=== PATIENT | female | born 1940 | race Caucasian/White ===

== ENCOUNTER 2017-08-08 11:53 | Emergency (ER) | payer MEDICARE, BC ==
--- NOTE | 2017-08-08 13:11 | EDM.PDOC ---
ED HPI GENERAL MEDICAL PROBLEM - General Chief Complaint: Upper Extremity Injury/Pain Stated Complaint: L WRIST PAIN Time Seen by Provider: 08/08/17 12:24 Source of Information: Reports: Patient History Limitations: Reports: No Limitations - History of Present Illness INITIAL COMMENTS - FREE TEXT/NARRATIVE: Left wrist pain oabout 1 1/2 weeks. Suddenly woke then with pain both wrists. The right side got better but the left side persists. Seen in clinic told to take Aleve. No hx gout. Bilateral Wrist Pain Score (Numeric/FACES): 9 - Related Data Allergies Allergy/AdvReac Type Severity Reaction Status Date / Time No Known Allergies Allergy Verified 07/03/14 07:49 Home Meds: Home Meds Aspirin [[place] Aspirin] 81 mg PO DAILY 08/08/17 [History] Liraglutide [Victoza] 1.8 mg INJECT DAILY 08/08/17 [History] Lisinopril 1 tab PO DAILY 08/08/17 [History] Omega3/Dha/Epa/Fish Oil/Vit D3 [[place]-3 + Vitamin D3 Softgel] 1 each PO DAILY [History] Sulfamethoxazole/Trimethoprim [Bactrim Ds Tablet] 1 each PO BID 08/08/17 [ History] Past Medical History HEENT History: Reports: Impaired Vision Cardiovascular History: Reports: Hypertension Genitourinary History: Reports: Urinary Incontinence 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: Musculoskeletal History: Reports: Osteoarthritis, Other (See Below) Other Musculoskeletal History: osteopenia posterior tibial tendon dysfunction callus r foot Psychiatric History: Reports: Anxiety Endocrine/Metabolic History: Reports: Diabetes, Type II, Obesity/BMI 30+ Dermatologic History: Reports: Psoriasis - Infectious Disease History Infectious Disease History: Reports: Chicken Pox, Measles, Mumps, Shingles - Past Surgical History Female Surgical History: Reports: Hysterectomy Musculoskeletal Surgical History: Reports: Knee Replacement Social & Family History - Tobacco Use Smoking Status *Q: Never Smoker Second Hand Smoke Exposure: No - Caffeine Use Caffeine Use: Reports: Coffee, Tea - Alcohol Use Days Per Week of Alcohol Use: 0 - Recreational Drug Use Recreational Drug Use: No Review of Systems - Review of Systems Review Of Systems: ROS reveals no pertinent complaints other than HPI. ED EXAM, GENERAL - Physical Exam Exam: See Below Exam Limited By: No Limitations General Appearance: Alert, WD/WN, No Apparent Distress Extremities: Other (minimal erythema left wrist with mod decreased ROM. Mod tender . NVT intact. Rt wrist noral) Course - Vital Signs Last Recorded V/S: Last Vital Signs Temp 37 C 08/08/17 12:09 Pulse 97 08/08/17 12:33 Resp 16 08/08/17 12:33 BP 127/72 08/08/17 12:33 Pulse Ox 97 08/08/17 12:33 - Re-Assessments/Exams Free Text/Narrative Re-Assessment/Exam: 08/08/17 13:08 rechecking bp Departure - Departure Time of Disposition: 13:09 Disposition: Home, Self-Care 01 Condition: Fair Clinical Impression: Monoarticular arthritis - Discharge Information Referrals: Clemencia Chan MD [Primary Care Provider] - Additional Instructions: Most likely this is a mild case of gout and is just about over with. No chance of infection. Continue to use the Aleve as your doctor recommended. You may take tylenol at the same time. Take Prednisone 20 mg daily for 5 days.
== END 2017-08-08 13:42 | disposition home or self-care (01) ==
LOC: JP.ED 11:53
DX: M13.132 Monoarthritis, not elsewhere classified, left wrist (principal); I10 Essential (primary) hypertension; E11.9 Type 2 diabetes mellitus without complications; Z79.82 Long term (current) use of aspirin; Z79.899 Other long term (current) drug therapy
CPT/HCPCS: 99283

== ENCOUNTER 2020-11-27 16:28 | Emergency (ER) | payer MEDICARE ==
--- NOTE | 2020-11-27 17:40 | EDM.PDOC ---
ED HPI GENERAL MEDICAL PROBLEM - General Chief Complaint: Back Pain or Injury Stated Complaint: BACK ACHE, URINARY INCONTINENCE Time Seen by Provider: 11/27/20 17:35 Source of Information: Reports: Patient History Limitations: Reports: No Limitations - History of Present Illness INITIAL COMMENTS - FREE TEXT/NARRATIVE: 80-year-old female with chronic low back pain, is concerned because over the past 2 days she has had increased urinary frequency and intermittent incontinence which is unusual for her. She is concerned she may have a urinary tract infection, she has no fevers or chills or significant dysuria. She does have increased urgency. No nausea or vomiting, significant abdominal pain, fevers or shortness of breath. Onset: Unknown/Unsure Location: Reports: Other (Pain is chronic and is in her lower back) Associated Symptoms: Denies: Fever/Chills, Loss of Appetite, Malaise, Shortness of Breath Back Pain Score (Numeric/FACES): 10 - Related Data Allergies Allergy/AdvReac Type Severity Reaction Status Date / Time No Known Allergies Allergy Verified 11/27/20 17:22 Home Meds: Home Meds Aspirin [Rosalia Aspirin] 81 mg PO DAILY 08/08/17 [History] Lisinopril 20 mg PO DAILY 08/08/17 [History] Calcium Carbonate [Calcium] 500 mg PO DAILY 11/27/20 [History] Folic Acid 1 mg PO DAILY 11/27/20 [History] Gabapentin [Neurontin] 600 mg PO TID 11/27/20 [History] Leflunomide [Arava] 10 mg PO DAILY 11/27/20 [History] glipiZIDE [Glucotrol] 5 mg PO DAILY 11/27/20 [History] tiZANidine [Zanaflex] 2 mg PO Q8H PRN 11/27/20 [History] Past Medical History HEENT History: Reports: Cataract, Impaired Vision Cardiovascular History: Reports: Hypertension Genitourinary History: Reports: Urinary Incontinence 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: Musculoskeletal History: Reports: Back Pain, Chronic, Osteoarthritis, Other (See Below) Other Musculoskeletal History: osteopenia posterior tibial tendon dysfunction callus r foot Psychiatric History: Reports: Anxiety Endocrine/Metabolic History: Reports: Diabetes, Type II, Obesity/BMI 30+ Dermatologic History: Reports: Psoriasis - Infectious Disease History Infectious Disease History: Reports: Chicken Pox, Measles, Mumps, Shingles - Past Surgical History HEENT Surgical History: Reports: Cataract Surgery Female Surgical History: Reports: Hysterectomy Musculoskeletal Surgical History: Reports: Knee Replacement Social & Family History - Tobacco Use Tobacco Use Status *Q: Never Tobacco User - Caffeine Use Caffeine Use: Reports: Coffee - Recreational Drug Use Recreational Drug Use: No ED ROS GENERAL - Review of Systems Review Of Systems: See Below Constitutional: Reports: Chills (Mild chills earlier today, normal now), Malaise. Denies: Fever Respiratory: Denies: Shortness of Breath Cardiovascular: Denies: Chest Pain GI/Abdominal: Reports: Abdominal Pain (Intermittent lower abdominal discomfort, none currently) : Reports: Frequency, Incontinence, Urgency. Denies: Dysuria, Flank Pain Musculoskeletal: Reports: Back Pain ED EXAM, GENERAL - Physical Exam Exam: See Below Exam Limited By: No Limitations General Appearance: Alert, No Apparent Distress Head: Atraumatic Respiratory/Chest: No Respiratory Distress, Lungs Clear Cardiovascular: Regular Rate, Rhythm GI/Abdominal: Normal Bowel Sounds, Soft, Tender (Does react with some mild tenderness in the left lower quadrant compared to the right, no guarding) Extremities: Other (A trace of symmetric bilateral ankle edema is present) Neurological: Alert, Oriented Psychiatric: Normal Affect, Normal Mood Skin Exam: Warm, Dry Course - Vital Signs Last Recorded V/S: Last Vital Signs Temp 95.2 F L 11/27/20 17:20 Pulse 94 11/27/20 17:20 Resp 16 11/27/20 17:20 BP 206/80 H 11/27/20 17:20 Pulse Ox 96 11/27/20 17:20 - Orders/Labs/Meds Labs: Laboratory Tests 11/27/20 Range/Units 17:20 Urine Color Yellow (YELLOW) Urine Appearance Clear (CLEAR) Urine pH 6.0 (5.0-8.0) Ur Specific [place] 1.010 (1.008-1.030) Urine Protein Negative (NEGATIVE) mg/dL Urine Glucose (UA) Negative (NEGATIVE) mg/dL Urine Ketones Negative (NEGATIVE) mg/dL Urine Occult Blood Negative (NEGATIVE) Urine Nitrite Negative (NEGATIVE) Urine Bilirubin Negative (NEGATIVE) Urine Urobilinogen 0.2 (0.2-1.0) EU/dL Ur Leukocyte Esterase Negative (NEGATIVE) Urine RBC 0-5 (0-5) Urine WBC 0-5 (0-5) Ur Epithelial Cells Moderate Amorphous Sediment Few Urine Bacteria Few Urine Mucus Not seen - Re-Assessments/Exams Free Text/Narrative Re-Assessment/Exam: 11/27/20 17:40 A UA was obtained by clean-catch. 11/27/20 18:04 UA is completely normal. A glucometer just before coming into the emergency room showed a glucose of 124, there is no glucose or protein in her urine. This may be related to medication side effects for her back or possibly just nerve damage from chronic back pain. She will return in the next 3 days if she develops a fever or increased abdominal pain, otherwise follow-up with Shari Alexis early in the week. Her main concern was that she had a urinary tract infection which is negative. Departure - Departure Time of Disposition: 18:28 Disposition: Home, Self-Care 01 Clinical Impression: Urinary incontinence Qualifiers: Urinary Incontinence type: urge incontinence Qualified Code(s): N39.41 - Urge incontinence Chronic back pain Qualifiers: Back pain location: low back pain Back pain laterality: bilateral Sciatica presence: without sciatica Qualified Code(s): M54.50 - Low back pain, unspecified - Discharge Information Instructions: Chronic Back Pain, [id number] Referrals: Shari Forbes MD [Primary Care Provider] - Forms: ED Department Discharge Care Plan Goals: Continue your current medications, return for reexamination if you develop fever or increased abdominal pain. Otherwise recheck with your primary provider next week about any other options or further evaluations or consultations that may be helpful. Sepsis Event Note (ED) - Evaluation Sepsis Screening Result: No Definite Risk
== END 2020-11-27 18:28 | disposition home or self-care (01) ==
LOC: JP.ED 16:28
DX: N39.41 Urge incontinence (principal); E11.9 Type 2 diabetes mellitus without complications; E66.9 Obesity, unspecified; Z68.36 Body mass index [BMI] 36.0-36.9, adult; Z79.82 Long term (current) use of aspirin; Z79.899 Other long term (current) drug therapy
CPT/HCPCS: 81001; 99283

== ENCOUNTER 2021-05-16 19:48 | Inpatient (IN) | payer MEDICARE ==
[2021-05-16] MEDS ORDERED: cefTRIAXone 1 GM in Sodium Chloride 0.9% 50 ML IV ONE (20:51)
[2021-05-16] MEDS ORDERED: Sodium Chloride 0.9% 1,000 ML IV SCH ×2 (21:15→23:15)
[2021-05-16 21:50] LABS: CORONAVIRUS COVID-19 NAA NEGATIVE (NEGATIVE)
[2021-05-16] MEDS ORDERED: Glucagon,Human Recombinant 1 MG Vial IM PRN (22:09)
[2021-05-16] MEDS ORDERED: 50% Dextrose in Water 50 ML Syringe IVPUSH PRN (22:09)
[2021-05-16] MEDS ORDERED: Insulin Regular, Human 100 Units/ML 3 ML Vial SUBCUT ONE (22:09)
[2021-05-16] MEDS: Acetaminophen/HYDROcodone 325-5 MG Tab PO PRN (23:19)
[2021-05-17] MEDS: Lisinopril 20 MG Tab PO SCH (08:26)
[2021-05-17] MEDS: Acetaminophen/HYDROcodone 325-5 MG Tab PO PRN (08:26)
[2021-05-17] MEDS ORDERED: Gabapentin 300 MG Cap PO SCH (09:00)
[2021-05-17] MEDS ORDERED: 50% Dextrose in Water 50 ML Syringe IV PRN (09:15)
[2021-05-17] MEDS ORDERED: Glucose Gel 15 GM in 37.5 GM Tube PO PRN (09:15)
[2021-05-17] MEDS: Gabapentin 300 MG Cap PO SCH ×3 (10:17→21:48)
[2021-05-17] MEDS: metFORMIN 500 MG Tab PO SCH ×2 (10:18→16:54)
[2021-05-17] MEDS: Aspirin 81 MG Tab.EC PO SCH (10:18)
[2021-05-17] MEDS: Enoxaparin 40 MG/0.4 ML Syringe SUBCUT SCH (10:19)
[2021-05-17] MEDS: Insulin Lispro 100 Unit/ML 3 ML KwikPen SUBCUT SCH ×3 (11:44→21:49)
[2021-05-17] MEDS: cefTRIAXone 1 GM in Sodium Chloride 0.9% 50 ML IV SCH (21:47)
[2021-05-18] MEDS: Insulin Lispro 100 Unit/ML 3 ML KwikPen SUBCUT SCH ×4 (09:21→21:43)
[2021-05-18] MEDS: metFORMIN 500 MG Tab PO SCH ×2 (09:24→17:28)
[2021-05-18] MEDS: Aspirin 81 MG Tab.EC PO SCH (09:25)
[2021-05-18] MEDS: Gabapentin 300 MG Cap PO SCH ×3 (09:25→21:44)
[2021-05-18] MEDS: Enoxaparin 40 MG/0.4 ML Syringe SUBCUT SCH (09:25)
[2021-05-18] MEDS: Lisinopril 20 MG Tab PO SCH (09:26)
[2021-05-18] MEDS ORDERED: Polyethylene Glycol 3350 Powder 17 GM Packet PO ONE (11:00)
[2021-05-18] MEDS: cefTRIAXone 1 GM in Sodium Chloride 0.9% 50 ML IV SCH (20:51)
[2021-05-19] MEDS: Insulin Lispro 100 Unit/ML 3 ML KwikPen SUBCUT SCH (07:33)
[2021-05-19] MEDS: metFORMIN 500 MG Tab PO SCH (07:33)
[2021-05-19] MEDS: Enoxaparin 40 MG/0.4 ML Syringe SUBCUT SCH (09:04)
[2021-05-19] MEDS: Aspirin 81 MG Tab.EC PO SCH (09:04)
[2021-05-19] MEDS: Gabapentin 300 MG Cap PO SCH (09:04)
[2021-05-19] MEDS: Lisinopril 20 MG Tab PO SCH (09:04)
== END 2021-05-19 11:45 | disposition home or self-care (01) | DRG 690 ==
LOC: JP.ED 19:48 → JP.MS 21:40
PROVIDERS: ADMIT Family Medicine; ATTEND Hospitalist
DX: N30.00 Acute cystitis without hematuria (principal); N17.9 Acute kidney failure, unspecified; E86.0 Dehydration; N39.0 Urinary tract infection, site not specified; N18.31 Chronic kidney disease, stage 3a; M54.50 Low back pain, unspecified; H54.7 Unspecified visual loss; B96.20 Unspecified Escherichia coli [E. coli] as the cause of diseases classified elsewhere; E11.22 Type 2 diabetes mellitus with diabetic chronic kidney disease; I12.9 Hypertensive chronic kidney disease with stage 1 through stage 4 chronic kidney disease, or unspecified chronic kidney disease; I10 Essential (primary) hypertension; R32 Unspecified urinary incontinence; G89.29 Other chronic pain; M54.9 Dorsalgia, unspecified; E66.9 Obesity, unspecified; Z96.659 Presence of unspecified artificial knee joint; M19.90 Unspecified osteoarthritis, unspecified site; M85.80 Other specified disorders of bone density and structure, unspecified site; F41.9 Anxiety disorder, unspecified; Z90.710 Acquired absence of both cervix and uterus; Z68.32 Body mass index [BMI] 32.0-32.9, adult; E11.9 Type 2 diabetes mellitus without complications; Z79.84 Long term (current) use of oral hypoglycemic drugs; Z79.82 Long term (current) use of aspirin; Z79.899 Other long term (current) drug therapy; Z20.822 Contact with and (suspected) exposure to COVID-19
CPT/HCPCS: 0241U; 36415; 71045; 80048; 80053; 81001; 82947; 83605; 85025; 85027; 87086; 87088; 87186; 96365; 97162; 97530; 99284; 99285; A9270-GY; J0696; J1650; J1815; J1815-GY; J3490; J7030

== ENCOUNTER 2023-02-23 07:13 | Day surgery (SDC) | payer MEDICARE ==
[~2023-02-23 07:13] MED LIST: Propofol 200 MG/20 ML SDV ONE; fentaNYL 50 MCG/ML SDV ONE
[2023-02-23] MEDS ORDERED: Lactated Ringers 1,000 ML IV SCH (08:30)
[2023-02-23] MEDS ORDERED: Propofol 200 MG/20 ML SDV ONE (09:34)
== END 2023-02-23 11:15 | disposition home or self-care (01) ==
LOC: JP.SDS 07:13
PROVIDERS: ATTEND Student in an Organized Health Care Education/Training Program
DX: R19.5 Other fecal abnormalities (principal); K63.5 Polyp of colon; K57.30 Diverticulosis of large intestine without perforation or abscess without bleeding; K21.9 Gastro-esophageal reflux disease without esophagitis; E78.5 Hyperlipidemia, unspecified
CPT/HCPCS: 88305; J2704; J3010; J7120

== ENCOUNTER 2023-10-19 11:36 | Emergency (ER) | payer MEDICARE ==
[2023-10-19 12:59] LABS: APPEARANCE,URINE SLIGHTLY CLOUDY (CLEAR); BILIRUBIN,URINE NEGATIVE (NEGATIVE); COLOR,URINE YELLOW (YELLOW); GLUCOSE,URINE NEGATIVE (NEGATIVE); KETONES,URINE NEGATIVE (NEGATIVE); LEUKOCYTE ESTERASE,URINE TRACE (NEGATIVE); NITRITE,URINE NEGATIVE (NEGATIVE); OCCULT BLOOD,URINE NEGATIVE (NEGATIVE); PH,URINE 6.5 (5.0-8.0); PROTEIN,URINE NEGATIVE (NEGATIVE); UROBILINOGEN,URINE 0.2 EU/dL (0.2-1.0)
[2023-10-19] MEDS: Sodium Chloride 0.9% 1,000 ML IV SCH (13:04)
[2023-10-19 13:06] LABS: AMORPHOUS SEDIMENT,URINE NOT SEEN; BACTERIA,URINE NOT SEEN; EPITHELIAL CELLS,URINE MODERATE; MUCUS,URINE NOT SEEN; RBC,URINE 0-5 (0-5)
[2023-10-19 13:10] LABS: BASOPHILS ABSOLUTE AUTO 0.12 K/uL (0.00-0.10); BASOPHILS PERCENT AUTO 1.7 % (0.1-1.3); EOSINOPHILS ABSOLUTE AUTO 0.39 K/uL (0.00-0.40); EOSINOPHILS PERCENT AUTO 5.5 % (0.0-5.4); HEMATOCRIT 34.5 % (34.3-46.0); HEMOGLOBIN 11.7 g/dL (11.2-15.5); IMMATURE GRAN ABSOLUTE AUTO 0.03 K/uL (0.00-0.23); IMMATURE GRAN PERCENT AUTO 0.4 % (0.0-0.7); LYMPHOCYTES ABSOLUTE AUTO 1.51 K/uL (0.8-3.3); LYMPHOCYTES PERCENT AUTO 21.4 % (11.4-47.7); MEAN CORPUSCULAR HEMOGLOBIN 31.3 pg (31.6-35.5); MEAN CORPUSCULAR HGB CONC 33.9 g/dL (31.6-35.5); MEAN CORPUSCULAR VOLUME 92.2 fL (81.4-99.0); MONOCYTES ABSOLUTE AUTO 1.04 K/uL (0.20-0.90); MONOCYTES PERCENT AUTO 14.7 % (3.3-12.6); NEUTROPHILS ABSOLUTE AUTO 3.97 K/uL (1.0-7.6); NEUTROPHILS PERCENT AUTO 56.3 % (40.0-78.1); PLATELET COUNT,PLT 206 K/uL (130-375); RED BLOOD CELL COUNT 3.74 M/uL (3.77-5.24); WHITE BLOOD CELL COUNT,WBC 7.1 K/uL (3.2-11.0)
[2023-10-19 13:11] LABS: BASE EXCESS VENOUS 0.1 mm/L; BICARBONATE,VENOUS 24.1 mmol/L; CARBOXYHEMOGLOBIN 2.4 % (0.0-1.6); METHEMOGLOBIN 0.8 %; O2 SATURATION VENOUS 82.6; PH,VENOUS 7.408 (7.350-7.450); PO2 VENOUS 45.7 mm/Hg; TOTAL HEMOGLOBIN 12.2 g/dL (12.0-16.0)
[2023-10-19 13:40] LABS: ALANINE AMINOTRANSFERASE,ALT 18 U/L (12-78); ALBUMIN 3.2 g/dL (3.4-5.0); ALKALINE PHOSPHATASE 84 U/L (46-116); ASPARTATE AMNIOTRANSFERASE,AST 17 U/L (15-37); BILIRUBIN TOTAL 0.3 mg/dL (0.2-1.0); BLOOD UREA NITROGEN,BUN 31 mg/dL (7-18); CALCIUM 9.3 mg/dL (8.5-10.1); CARBON DIOXIDE,CO2 25 mmol/L (21-32); CHLORIDE,CL 105 mmol/L (100-108); CREATININE 1.2 mg/dL (0.6-1.0); EST CRCL DRUG DOSING (CG) 38.43 mL/min; ESTIMATED GFR 45 mL/min (>60); GLUCOSE RANDOM 138 mg/dL (74-106); POTASSIUM,K 4.7 mmol/L (3.6-5.2); PRO B-TYPE NATRIUR PEPT,BNPPRO 643 pg/mL (5-450); PROTEIN TOTAL,TP 6.5 g/dL (6.4-8.2); SODIUM,NA 137 mmol/L (140-148); TROPONIN I HIGH SENSITIVITY 8.6 pg/mL (<=60.3)
[2023-10-19 13:43] LABS: ANION GAP 11.7 mmol/L (5.0-14.0)
[2023-10-19 13:49] LABS: CORONAVIRUS COVID-19 NAA NEGATIVE (NEGATIVE); INFLUENZA A NAA NEGATIVE (NEGATIVE); INFLUENZA B NAA NEGATIVE (NEGATIVE); RESPIRATORY SYNCYTIAL VIR NAA NEGATIVE (NEGATIVE)
== END 2023-10-19 15:24 | disposition home or self-care (01) ==
LOC: JP.ED 11:36
DX: E86.1 Hypovolemia (principal); E88.09 Other disorders of plasma-protein metabolism, not elsewhere classified; I10 Essential (primary) hypertension; E11.9 Type 2 diabetes mellitus without complications; E66.9 Obesity, unspecified; Z86.73 Personal history of transient ischemic attack (TIA), and cerebral infarction without residual deficits; Z79.82 Long term (current) use of aspirin; Z79.899 Other long term (current) drug therapy; Z79.84 Long term (current) use of oral hypoglycemic drugs; Z88.5 Allergy status to narcotic agent; Z88.8 Allergy status to other drugs, medicaments and biological substances; Z88.0 Allergy status to penicillin; Z88.1 Allergy status to other antibiotic agents
CPT/HCPCS: 0241U; 36415; 71045; 80053; 81001; 82803; 83605; 83880; 84145; 84484; 85025; 93005; 96360; 96361; 99284; J7030

== ENCOUNTER 2024-05-07 09:10 | Emergency (ER) | payer MEDICARE ==
[2024-05-07] MEDS: cefTRIAXone 1 GM, Lidocaine 1% 2.1 ML IM ONE (10:18)
== END 2024-05-07 10:32 | disposition home or self-care (01) ==
LOC: JP.ED 09:10
DX: N39.0 Urinary tract infection, site not specified (principal); Z88.1 Allergy status to other antibiotic agents; Z88.8 Allergy status to other drugs, medicaments and biological substances
CPT/HCPCS: 96372; 99283; J0696; J2003